=== PATIENT | male | born 1930 | race Hispanic/Latino ===

== ENCOUNTER 2018-03-05 20:12 | Inpatient (IN) | payer MEDICARE, OTHER ==
[2018-03-05 20:57] LABS: #Eosinphils 0.1 thou/uL (0.0-0.7); #Lymphocytes 1.8 thou/uL (1.20-3.40); #Monocytes 0.4 thou/uL (0.11-0.59); %Basophils 0.5 % (0.0-1.0); %Eosinophils 1.7 % (0.0-10.0); %Lymphocytes 21.8 % (21.0-51.0); %Monocytes 4.6 % (0.0-10.0); %Neutrophils 71.3 % (42.0-75.0); Hemoglobin 15.7 g/dL (14.0-18.0); Mean Corpuscular HGB CONC 35.9 g/dL (32.0-36.0); Mean Corpuscular Hemoglobin 29.9 pg (27.0-31.0); Mean Corpuscular Volume 83.2 fL (78.0-98.0); Platelet Count 261 thou/uL (130-400); Red Blood Cell (RBC) Count 5.26 mill/uL (4.70-6.10); White Blood Cell (WBC) Count 8.5 thou/uL (4.8-10.8)
[2018-03-05 21:19] LABS: ALT (SGPT) 12 U/L (8-55); AST (SGOT) 9 U/L (5-34); Albumin 4.3 g/dL (3.4-4.8); Alkaline Phosphatase 170 U/L (40-150); Anion Gap 22 mmol/L (10-20); BUN (Urea Nitrogen) 12 mg/dL (8.4-25.7); Bilirubin, Total 0.7 mg/dL (0.2-1.2); Calc. Creatinine Clearance 0 mL/min (70-130); Calcium 9.3 mg/dL (7.8-10.44); Chloride 104 mmol/L (98-107); Estimated GFR-MDRD 59; Globulin 4.7 g/dL (2.4-3.5); Glucose 397 mg/dL (83-110); Sodium 131 mmol/L (136-145)
[2018-03-05 21:22] LABS: Bilirubin Small (Negative); Blood, Urine Negative (Negative); Clarity CLEAR (Clear); Glucose, Urine (Dipstick) Negative (Negative); Leukocyte Small (Negative); Nitrite Negative (Negative); Protein, Urine (Dipstick) 30 mg/dL (Neg-Trace); Specific Gravity, Urine 1.025 (1.002-1.036)
[2018-03-05 21:27] LABS: Bacteria/HPF None Seen HPF (None Seen); Hyaline Casts/LPF 7-10 HYALINE CAST LPF (0-3 Hyaline); Squamous Epithelial 0-3 HPF (0-3)
[2018-03-05 21:28] LABS: Carbon Dioxide 9 mmol/L (23-31)
[2018-03-05] MEDS ORDERED: Enoxaparin Sodium 40 MG/0.4 ML SYRINGE SC SCH (23:15)
--- NOTE | 2018-03-05 23:31 | PDOC.FPRHP ---
- History of Present Illness Chief Complaint: unable to swallow History of Present Illness: 87 yo W M with PMH of dx gastric cancer in Sep, CHF, DM, HTN, and gastric ulcers , presents with dysphagia for the past 3 days. Pt states food feels "stuck in my throat," so he has not eaten for the past 3 days. He vomited after trying to eat 3 days ago. He has been able to drink very small amounts of gatorade and water. Prior to this, he was eating slow, small, frequent meals. Pt was diagnosed with gastric cancer in September and elected to have no treatment, because spouse went through tx for breast cancer and he watched her suffer. Pt also complains of new onset epigastric pain. He has lost 30 lbs since september. He had a cough 1 month ago, no other recent fevers or illnesses. Pt PCP is Dr. Ford at the [facility]. Also sees oncologist Dr. Garcia in [place]. In the ED, pt blood pressure was low, with systolic in the 80s. pt received two boluses of 500 ml, and pressure corrected to 120/56, with HR 102. EKG showed RBBB. - Allergies/Adverse Reactions Allergies Allergy/AdvReac Type Severity Reaction Status Date / Time sulfamethoxazole Allergy Verified 03/06/18 00:13 [From Bactrim] trimethoprim [From Bactrim] Allergy Verified 03/06/18 00:13 - Home Medications Medication Instructions Recorded Confirmed Type Allopurinol 100 mg PO DAILY 05/18/16 03/06/18 History Sennosides/Docusate Sodium [DOK 1 tablet PO DAILY PRN 05/18/16 03/06/18 History Plus] Ferrous Gluconate [Fergon] 324 mg PO BID #60 tab 05/23/16 03/06/18 Rx Carvedilol [Coreg] 3.125 mg PO HS 03/06/18 03/06/18 History Carvedilol [Coreg] 6.25 mg PO QAM 03/06/18 03/06/18 History Lisinopril [Zestril] 0.5 tab PO HS 03/06/18 03/06/18 History - History PMHx: gastric ulcers, CHF, DM (diet controlled), HTN, gastric cancer PSHx: surgery for bowel obstruction, appendectomy FHx: mother with BC in her late 80s/early 90s Social: 11 PY smoking hx, quit 30 yrs ago; no Etoh, no drugs - Review of Systems General: reports: weight/appetite/sleep changes (lost 30 lbs in past 5 months). denies: fever/chills, fatigue ENT: denies: rhinorrhea, other (denied sore throat) Respiratory: denies: cough, congestion, shortness of breath, exercise intolerance Cardiovascular: reports: edema. denies: chest pain Gastrointestinal: reports: vomiting, abdominal pain (epigastric). denies: nausea, diarrhea, constipation, GI bleeding Skin: denies: rashes Musculoskeletal: denies: pain Neurological: denies: numbness, weakness - Vital signs Bp 120/56, P 102, R 20, T 98.1, O2 99% on RA, Wt 73 kg - Physical Exam Constitutional: NAD, awake, alert and oriented, other (cachectic) HEENT: normocephalic and atraumatic, PERRLA, MMM, oropharynx clear Neck: supple, no LAD Chest: no-tender to palpation, no lesions Heart: RRR, normal S1/S2, pulses present, other (1/6 systolic murmur) Lungs: CTAB, no respiratory distress, good air movement, no rales/rhonchi, no wheezing Abdomen: soft, bowel sounds present, no masses/distention, other (epigastrium slightly TTP) Musculoskeletal: normal structure, normal tone Neurological: no focal deficit Skin: no rash/lesions, good turgor, capillary refill <2 seconds Psychiatric: normal mood and affect, other (poor remote memory, had to ask daughter for help answering questions) FMR H&P: Results - Labs Result Diagrams: 03/05/18 20:35 03/06/18 02:00 Lab results: WBC 8.5 thou/uL (4.8-10.8) 03/05/18 20:35 Hgb 15.7 g/dL (14.0-18.0) 03/05/18 20:35 Hct 43.7 % (42.0-52.0) 03/05/18 20:35 MCV 83.2 fL (78.0-98.0) 03/05/18 20:35 Plt Count 261 thou/uL (130-400) 03/05/18 20:35 Neutrophils % 71.3 % (42.0-75.0) 03/05/18 20:35 Sodium 131 mmol/L (136-145) L 03/05/18 20:35 Potassium 4.0 mmol/L (3.5-5.1) 03/05/18 20:35 Chloride 104 mmol/L (98-107) 03/05/18 20:35 Carbon Dioxide 9 mmol/L (23-31) L* 03/05/18 20:35 BUN 12 mg/dL (8.4-25.7) 03/05/18 20:35 Creatinine 1.17 mg/dL (0.6-1.3) 03/05/18 20:35 Glucose 397 mg/dL (83-110) H 03/05/18 20:35 Lactic Acid 1.0 mmol/L (0.5-2.2) 03/05/18 20:35 Calcium 9.3 mg/dL (7.8-10.44) 03/05/18 20:35 Total Bilirubin 0.7 mg/dL (0.2-1.2) 03/05/18 20:35 AST 9 U/L (5-34) 03/05/18 20:35 ALT 12 U/L (8-55) 03/05/18 20:35 Alkaline Phosphatase 170 U/L (40-150) H 03/05/18 20:35 B-Natriuretic Peptide 548.0 pg/mL (0-100) H 03/05/18 20:43 Serum Total Protein 9.0 g/dL (5.8-8.1) H 03/05/18 20:35 Albumin 4.3 g/dL (3.4-4.8) 03/05/18 20:35 Urine Ketones Trace mg/dL (Negative) H 03/05/18 21:07 Urine Blood Negative (Negative) 03/05/18 21:07 Urine Nitrite Negative (Negative) 03/05/18 21:07 Ur Leukocyte Esterase Small (Negative) H 03/05/18 21:07 Urine RBC 4-6 HPF (0-3) 03/05/18 21:07 Urine WBC 11-20 HPF (0-3) H 03/05/18 21:07 Ur Squamous Epith Cells 0-3 HPF (0-3) 03/05/18 21:07 Urine Bacteria None Seen HPF (None Seen) 03/05/18 21:07 FMR H&P: A/P - Problem List (1) Dysphagia Current Visit: Yes Status: Acute Code(s): R13.10 - DYSPHAGIA, UNSPECIFIED (2) Malnutrition Current Visit: Yes Status: Acute Code(s): E46 - UNSPECIFIED PROTEIN-CALORIE MALNUTRITION (3) Moderate dehydration Current Visit: Yes Status: Acute Code(s): E86.0 - DEHYDRATION (4) Gastric carcinoma Current Visit: Yes Status: Chronic Code(s): C16.9 - MALIGNANT NEOPLASM OF STOMACH, UNSPECIFIED (5) Hyponatremia Current Visit: Yes Status: Acute Code(s): E87.1 - HYPO-OSMOLALITY AND HYPONATREMIA (6) CHF (congestive heart failure) Current Visit: Yes Status: Chronic Code(s): I50.9 - HEART FAILURE, UNSPECIFIED (7) T2DM (type 2 diabetes mellitus) Current Visit: Yes Status: Chronic (8) Dyslipidemia Current Visit: No Status: Chronic Code(s): E78.5 - HYPERLIPIDEMIA, UNSPECIFIED (9) Hypertension Current Visit: No Status: Chronic Code(s): I10 - ESSENTIAL (PRIMARY) HYPERTENSION Qualifiers: Hypertension type: essential hypertension Qualified Code(s): I10 - Essential (primary) hypertension (10) Gout Current Visit: No Status: Chronic Code(s): M10.9 - GOUT, UNSPECIFIED - Plan 87 yo W M with PMH of gastric cancer presents for dysphagia, malnutrition, and dehydration. Malnutrition -Hx of gastric cancer diagnosed in Sep, treatment refused. Pt has not eaten past 3 days due to sensation of "food sticking" in his throat, has tolerated small amounts of fluids. Pt has lost significant amount of weight (30 lbs) in past 5 months. At this time, it is necessary to consult surgery to see if they want to do an EGD and/or consider placing a peg tube. Dehydration -NS @ 75 ml/hr. With hx of CHF, fluid must be balanced carefully between rehydration and overloading his cardiovascular system. Dysphagia - Most likely related to gastric cancer vs stricture -Speech therapy consult -NPO for now, after seen by speech consider switching his diet to clears with ensure supplementation -consult surgery in AM T2DM -glucose 392 on admission -sliding scale insulin -betahydroxybutyrate pending CHF -BNP ordered HTN -restarted home carvedilol and lisinopril Gout -restarted home allopurinol Other -Consult PT/OT Code status: full code Krista Carrizales, PGY-1 FMR H&P: Upper Level - Pertinent history 87 male here for cant swallow for past 3 days. Patient endorses history of gastric cancer. This has been known since September. He has lost about 30 lb since and has difficulty with both solid and liquid intake since September. In last 3 days, he feels that his dysphagia has worsen and he now has reduced oral and fluid intake. He had declined treatment for his gastric cancer, stating that his went through chemo and . He states he does not want to do the same. He states he wants a peg tube. In the ER, he was noted to be hypotensive down in the 80 systolic, but not febrile. After 1 L of fluid, his BP responded and systolic was in the 120s.He does have a history of CHF. Medication: Lisinopril 10 mg, carvedilol 3.25 BID, allopurinol 200 mg, docusate 50 mg qd, 325 FE once daily Pmhx: DM2, HTN, CHF with , Gastric Cancer, Gout Pshx: Gastric ulcer repair, appendectomy, surgery for bowel obstruction Allergies: Bactrim - Hives Family hx: Mother : breast cancer Social: Former smoker, lives with family - Pertinent findings Vitals:60, Pulse 99, Resp 20, Temp 98.8F, 98% on RA Gen: Thin appearing, NAD HEENT: Normocephalic, dry mucosal membrane, no jaundice CV: RRR with no apparent m/g/r Resp: CTA bilaterally, no labored breathing GI: Normoactive, soft to palpation Ext: 1+ edema to mid [place]. Derm: No obvious lesions Neuro: Strength 5/5 in LE. No focal deficit. Psych: Grossly alert and oriented - Plan Date/Time: 03/05/18 2311 I, [Hung Arenas], have evaluated this patient and agree with findings/plan as outlined by technology risk intern resident. Pertinent changes/additions are listed here. 1. Dehydration: Symptomatic with BP in 80 systolic, responded after fluid bolus. 75NS/hr secondary to history of CHF 2. Protein calorie malnutrition: Lost 30 lbs within last year. Patient desires PEG tube. NPO at this time as patient aspiration risk with his reduce swallowing capability. Bedside swallow, then likely start on clears. 3. Gastric cancer: Request record in morning, consider consult onc/gen surg/GI in morning for gastric cancer, PEG and EGD respectively 4. CHF: Last echo in 05/20/16, EF 45-50% with diastolyic dysfunction. Continue carvedilol and Lisinopril. 5. Hyponatremia: Likely secondary to dehydration. Will trend. Correct with NS. 6. Anion gap metabolic acidosis, gap 18. Patient glucose was 397 on admission. LA was 1. Patient non labored breathing. Will obtain b-hydroxybutyrate. Consider ketosis secondary to decrease intake and with known DM2. Will follow up with lab and treat as appropriate. 7. DM2: SSI. Patient report being diet controlled only. 8. Isolated alk phosphatase elevation: Consider US. ALT/AST normal. 9. PPx: Lovenox, PT/OT 10. Gout: Continue allopurinol.
[2018-03-06] MEDS ORDERED: Docusate 100 MG CAP PO PRN (01:08)
[2018-03-06] MEDS: Sodium Chloride 0.9% 1,000 ML IV SCH ×2 (01:09→15:31)
[2018-03-06] MEDS ORDERED: Dextrose 5% in Water 1,000 ML IV PRN (01:10)
[2018-03-06] MEDS ORDERED: Dextrose 50% Abboject 50 ML SYRINGE SLOW IVP PRN (01:10)
[2018-03-06] MEDS ORDERED: HumaLOG 300 UNITS/3 ML VIAL SC PRN (01:10)
[2018-03-06] MEDS ORDERED: Lisinopril 10 MG TAB PO SCH (01:15)
[2018-03-06 02:39] LABS: Anion Gap 9 mmol/L (10-20); BUN (Urea Nitrogen) 20 mg/dL (8.4-25.7); Calc. Creatinine Clearance 50 mL/min (70-130); Calcium 8.4 mg/dL (7.8-10.44); Carbon Dioxide 27 mmol/L (23-31); Chloride 104 mmol/L (98-107); Estimated GFR-MDRD 63; Glucose 99 mg/dL (83-110); Potassium 4.2 mmol/L (3.5-5.1); Sodium 136 mmol/L (136-145)
[2018-03-06] MEDS: Carvedilol 3.125 MG TAB PO SCH ×2 (08:32→17:16)
[2018-03-06] MEDS: Ferrous Sulfate 325 MG TAB PO SCH (08:32)
[2018-03-06] MEDS: Allopurinol 100 MG TAB PO SCH (08:32)
[2018-03-06] MEDS: Lisinopril 10 MG TAB PO SCH (08:32)
[2018-03-06] MEDS: Famotidine/PF 20 mg/2ml Vial SLOW IVP SCH ×2 (15:32→21:13)
[2018-03-06] MEDS: Enoxaparin Sodium 40 MG/0.4 ML SYRINGE SC SCH (21:14)
[2018-03-07] MEDS: Sodium Chloride 0.9% 1,000 ML IV SCH (01:44)
--- NOTE | 2018-03-07 08:44 | PDOC.FM ---
- Subjective Subjective: No acute events overnight. Pt denies pain, nvdc. Denies hunger although he has not had po intake in approx 48 hours. He spoke with palliative care yesterday and I spoke with pt at bedside regarding code status, he wishes to be DNR. Will advance diet to clear liquids. GI consult still pending. - Objective Vital Signs & Weight: Vital Signs (12 hours) Temp Pulse Resp BP Pulse Ox 03/06/18 23:29 98.3 F 71 16 125/68 94 L Weight Admit Weight 73.113 kg Weight 76.657 kg I&O: 03/06/18 03/07/18 03/08/18 06:59 06:59 06:59 Intake Total 1601 Output Total 525 Balance 1076 Result Diagrams: 03/05/18 20:35 03/06/18 02:00 <Mateusz Almeida - Last Filed: 03/07/18 08:42> - Objective Vital Signs & Weight: Vital Signs (12 hours) Temp Pulse Resp BP Pulse Ox 03/07/18 08:30 99 F 73 18 126/59 L 92 L 03/07/18 08:00 99 F 73 18 03/06/18 23:29 98.3 F 71 16 125/68 94 L Weight Admit Weight 73.113 kg Weight 76.657 kg I&O: 03/06/18 03/07/18 03/08/18 06:59 06:59 06:59 Intake Total 1601 440 Output Total 525 350 Balance 1076 90 Result Diagrams: 03/05/18 20:35 03/06/18 02:00 <Ulysess Vega - Last Filed: 03/07/18 11:27> Phys Exam - Physical Examination Constitutional: NAD HEENT: PERRLA, moist MMs Neck: no nodes, no JVD Respiratory: no wheezing, no rales, no rhonchi, clear to auscultation bilateral Cardiovascular: RRR, no significant murmur, no rub Gastrointestinal: soft, non-tender, no distention, positive bowel sounds Musculoskeletal: pulses present, edema present (2+ pitting b/l LE) Neurological: non-focal, moves all 4 limbs Psychiatric: normal affect Skin: no rash, normal turgor, cap refill <2 seconds <Mateusz Almeida - Last Filed: 03/07/18 08:42> Dx/Plan (1) Dysphagia Code(s): R13.10 - DYSPHAGIA, UNSPECIFIED Status: Acute (2) Malnutrition Code(s): E46 - UNSPECIFIED PROTEIN-CALORIE MALNUTRITION Status: Acute (3) CHF (congestive heart failure) Code(s): I50.9 - HEART FAILURE, UNSPECIFIED Status: Chronic (4) T2DM (type 2 diabetes mellitus) Status: Chronic (5) Gastric carcinoma Code(s): C16.9 - MALIGNANT NEOPLASM OF STOMACH, UNSPECIFIED Status: Chronic - Plan Plan: 1) Dysphagia: charyley 2/2 worsening tumor burden of know gastric carcinoma - palliative consulted - pt wishes to be DNR, although he would like some nutrition in form of peg tube - GI referral placed - Clear liquid diet 2) Gastric carcinoma. see #1 3) DMII) SSI -accuchecks achs 4)HFrEF: BNP mildly elevated above baseline - increasing LE edema from yesterday - will give 20mg IVP lasix - monitor clinically for s/s worsening fluid status <Mateusz Almeida - Last Filed: 03/07/18 08:42> Attending Addendum - Attending Addendum Date/Time: 03/07/18 1122 I personally evaluated the patient and discussed the management with Dr. Almeida I agree with the History, Examination, Assessment and Plan documented above with any addition or exceptions noted below. Pleasant gentleman with gastric carcinoma refusing XRT/Chemotherapy/surgery for end of life care appreciate GI evaluation and recommendations. Patient seen by spiritual and palliative care. <Ulysses Vega - Last Filed: 03/07/18 11:27>
[2018-03-07] MEDS ORDERED: Furosemide 20 MG/2 ML VIAL SLOW IVP SCH (09:00)
[2018-03-07] MEDS: Carvedilol 3.125 MG TAB PO SCH ×2 (09:24→17:27)
[2018-03-07] MEDS: Allopurinol 100 MG TAB PO SCH (09:24)
[2018-03-07] MEDS: Lisinopril 10 MG TAB PO SCH (09:24)
[2018-03-07] MEDS: Ferrous Sulfate 325 MG TAB PO SCH (09:24)
[2018-03-07] MEDS: Famotidine/PF 20 mg/2ml Vial SLOW IVP SCH ×2 (10:08→20:29)
[2018-03-07] MEDS ORDERED: Lidocaine 1% PF 5 ML VIAL ONE (12:11)
[2018-03-07] MEDS ORDERED: PROPOFOL 200 MG/20 ML VIAL ONE (12:11)
[2018-03-07] MEDS: Enoxaparin Sodium 40 MG/0.4 ML SYRINGE SC SCH (20:28)
--- NOTE | 2018-03-08 02:06 | OP ---
DATE OF PROCEDURE: 03/07/2018 OPERATIVE PROCEDURES: 1. Esophagogastroscopy. 2. Esophageal dilation with 52-Ch[place] Pires dilator. PREOPERATIVE DIAGNOSES: Dysphagia, gastric ulcer. POSTOPERATIVE DIAGNOSES: 1. No esophageal narrowing seen. 2. Extensive friable fungating mass over the stomach and the balance could not be visualized. PROCEDURE NOTE: The patient was placed on his left lateral position and was given sedation by Anesth esia Department. A Pentax video gastroscope under direct vision was passed into the oropharynx, pass ed the GE junction, into the stomach. The vocal cords appeared healthy. The distal lumen is widely open. He does have occasional white plaques over the upper esophagus. The GE junction, no pathology seen. The scope advanced easily into the stomach. Upon entering the stomach, patient found to have sensory fungating ulcerated mass over the proximal extended gastric body. The lesion was quite larg e and widespread. The fundus and cardia, no pathology seen. I could not locate the pylorus after se veral minutes. The scope removed. The empiric dilation done with 52-[place] Pires dilator. RECOMMENDATIONS: 1. Diet as tolerated. 2. Endoscopic gastrostomy tube placement, this because of extensive tumor. I did talk to his daughter who was in the waiting room. I explained to her about the endoscopic find ings. I encouraged her to follow drink liquids as much as possible.
--- NOTE | 2018-03-08 02:42 | CON ---
DATE OF CONSULTATION: 03/07/2018 REFERRING PHYSICIAN: Dr. Levy York MD, [facility] Practice service. REASON FOR CONSULTATION: Dysphagia, history of gastric cancer. HISTORY OF PRESENT ILLNESS: Mr. Carlos Smyth is a very fragile looking, elderly ma le with a diagnosis of gastric cancer diagnosed in 09/2017. The patient's daughter is in the room. As per the patient's family that he was found to have anemia in 08/2017 and was referred to [facility] in [place]. In EGD, he found to have gastric cancer at that time. The daughter tells me he also h ad abdominal CAT scan that was found to have liver masses mostly metastatic disease. He also had a c olonoscopy at the same time. He was advised by the GI doctor in [place] just not to do any chemothera py or any other pathology. He recommended comfort care. The patient has had no appetite and he has been doing very poorly. He has been losing weight and as per the family, he had lost about 40 pounds over the last 6 months. The patient also has seen Dr. Ross Gandhi in 2018 because of some dyspnea and he did a heart exam. However, he was told the heart is really not that better and advised to com e back in 6 months' time. The patient has had no chest pain, no dyspnea, no orthopnea or PND. The p atient is awake, alert, and communicative. He tells me that he feels as if something is going down _ ____. He feels full and bloated. He has abdominal pain. No nausea or vomiting. No odynophagia. H e seems to think that there is something blocking in the esophagus and not able to swallow. Bowel mo vements are fairly regular. No history of hematochezia or melena. No other relevant symptoms. MEDICAL ILLNESSES: 1. Gastric cancer diagnosed in 09/2017. 2. Anemia. 3. History of heart failure and has seen Dr. Ross Gandhi in the past. He has also history of type 2 diabetes mellitus. 4. Hyperlipidemia. 5. Hypertension. OTHER DIAGNOSIS: SOCIAL HISTORY: Patient is a past smoker. Does not drink alcohol. ALLERGIES: SULFA. REVIEW OF SYSTEMS: [employer]: No history of dizziness, no syncope, no TIA, no seizure disorder. Respirat ory: No history of chronic cough, hemoptysis, dyspnea. Cardiovascular: No chest pain, no palpitati on, no dyspnea, orthopnea or PND. Gastrointestinal: Vague abdominal pain, abdominal fullness, dysph agia. Genitourinary: No dysuria, hematuria or frequency of urination. Musculoskeletal, endocrine a nd psychiatric: Noncontributory. PHYSICAL EXAMINATION: GENERAL: This is a very pleasant, elderly male, appears very comfortable. He is awak e, alert, and communicative. VITAL SIGNS: Stable. He is afebrile, temperature 99 degrees Fahrenheit, pulse is 73, blood pressure is 126/55. HEENT: He has mild scleral icterus. NECK: Supple. No adenitis or thyromegaly noted. CARDIOVASCULAR: First and second heart sounds normal. LUNGS: Clear to auscultation. ABDOMEN: Soft to palpate. Abdomen is nontender. No organomegaly or masses. Bowel sounds are jh l. EXTREMITIES: Reveal no edema. LABORATORY DATA: CBC shows WBC 8500, hemoglobin 15.7, hematocrit 43.7, MCV 83.2, platelet count 251, 000. Glucose is 73. CLINICAL IMPRESSION: An 87-year-old male with a diagnosis of gastric carcinoma in 2017. He has been eating very less and is losing weight. The patient has presents dysphagia, unable to eat. I am really not sure if this is a true dysphagia or he is feeling full and bloated because of gastric cancer. I offered the patient an EGD and possible dilation. I did talk to the patient's family about the need for a gastrostomy tube. I also explained to him that the gastrostomy tube walt ot be possible because of the gastric cancer. PLAN: I will plan for an EGD today and I will make further recommendations.
[2018-03-08] MEDS: Carvedilol 3.125 MG TAB PO SCH (07:58)
[2018-03-08] MEDS: Ferrous Sulfate 325 MG TAB PO SCH (07:58)
[2018-03-08] MEDS: Lisinopril 10 MG TAB PO SCH (07:58)
[2018-03-08] MEDS: Allopurinol 100 MG TAB PO SCH (08:00)
[2018-03-08 08:02] VITALS: BP 129/63
[2018-03-08 08:11] VITALS: TEMP 97.6
--- NOTE | 2018-03-08 08:40 | PDOC.FM ---
- Subjective Subjective: 87 yo M w/ PMH of gastric CA. Pt had an EGD yesterday and pylorus was unable to be visualized 2/2 fungating mass. Per pt, no inidication for PEG tube. Full liquid diet. He is tolerating diet well, no acute events overnight. Denies abd pain, NVDC. - Objective Vital Signs & Weight: Vital Signs (12 hours) Temp Pulse Resp BP BP Pulse Ox 03/08/18 08:02 97.6 F 75 18 129/63 94 L 03/08/18 07:58 129/63 Weight Admit Weight 73.113 kg Weight 76.657 kg I&O: 03/07/18 03/08/18 03/09/18 06:59 06:59 06:59 Intake Total 1601 680 Output Total 525 1650 Balance 1076 -970 Result Diagrams: 03/05/18 20:35 03/06/18 02:00 <Mateusz Almeida - Last Filed: 03/08/18 08:39> - Objective Vital Signs & Weight: Vital Signs (12 hours) Temp Pulse Resp BP BP Pulse Ox 03/08/18 08:02 97.6 F 75 18 129/63 94 L 03/08/18 07:58 129/63 Weight Admit Weight 73.113 kg Weight 76.657 kg I&O: 03/07/18 03/08/18 03/09/18 06:59 06:59 06:59 Intake Total 1601 680 Output Total 525 1650 Balance 1076 -970 Result Diagrams: 03/05/18 20:35 03/06/18 02:00 <Ulysses Vega - Last Filed: 03/08/18 10:27> Phys Exam - Physical Examination Constitutional: NAD HEENT: PERRLA, moist MMs Neck: no nodes, no JVD Respiratory: no wheezing, no rales, no rhonchi, clear to auscultation bilateral Cardiovascular: RRR, no significant murmur, no rub Gastrointestinal: soft, non-tender, no distention, positive bowel sounds Musculoskeletal: pulses present, edema present (2+, improfed form yesterday) Neurological: non-focal, moves all 4 limbs Psychiatric: normal affect Skin: no rash, cap refill <2 seconds <Mateusz Almeida - Last Filed: 03/08/18 08:39> Dx/Plan (1) Dysphagia Code(s): R13.10 - DYSPHAGIA, UNSPECIFIED Status: Acute (2) Malnutrition Code(s): E46 - UNSPECIFIED PROTEIN-CALORIE MALNUTRITION Status: Acute (3) CHF (congestive heart failure) Code(s): I50.9 - HEART FAILURE, UNSPECIFIED Status: Chronic (4) T2DM (type 2 diabetes mellitus) Status: Chronic (5) Gastric carcinoma Code(s): C16.9 - MALIGNANT NEOPLASM OF STOMACH, UNSPECIFIED Status: Chronic - Plan Plan: 1) Dysphagia: likley 2/2 worsening tumor burden of know gastric carcinoma - palliative consulted - advance d to full liquid diet, pt tolerating well - GI consulted, appreciate recs - if no inidication or contrainidications to PEG, pt likely ok to dc to home with palliative care 2) Gastric carcinoma. see #1 3) DMII) SSI -accuchecks achs 4)HFrEF: BNP mildly elevated above baseline - LE edema improved from yesterday, PRN lasix - currently tolerating liquids - hold IVF Dispo: Pt currently tolerating full liquid diet, add ensure TID for nutritional support. If no PEG tube, likely stable for DC to home with palliation. <Mateusz Almeida - Last Filed: 03/08/18 08:39> Attending Addendum - Attending Addendum Date/Time: 03/08/18 1025 I personally evaluated the patient and discussed the management with Dr. Almeida I agree with the History, Examination, Assessment and Plan documented above with any addition or exceptions noted below.Home today f/u PCP at [facility] discussed hospice candidacy patient/family will consider this option. Patient is tolerating liquid allow soft as tolerated stable to dismiss home today. <Ulysses Vega - Last Filed: 03/08/18 10:27>
--- NOTE | 2018-03-08 09:52 | PRG ---
DATE OF SERVICE: 03/08/2018 SUBJECTIVE: This is an 87-year-old Latin-[place]ian male with gastric cancer, diagnosed six months ago . Patient declined chemotherapy. He was admitted because of dysphagia and progressive weight loss. He had an EGD done, which revealed no esophageal pathology. He underwent empiric dilation. He is t olerating a full liquid diet and eating well. He has no abdominal pain, no nausea, no vomiting. PHYSICAL EXAMINATION: GENERAL: Appears comfortable. VITAL SIGNS: Afebrile, pulse is 75, blood pressure 129/63. CARDIOVASCULAR/LUNGS: Within normal limits. ABDOMEN: Soft to palpate. Abdomen is nontender. RECOMMENDATIONS: Advance diet to a regular diet. We will sign off and if there is any problem, plea se call me back.
[2018-03-08 10:04] VITALS: BMI 22.9
[2018-03-08] MEDS: Famotidine/PF 20 mg/2ml Vial SLOW IVP SCH (10:16)
--- NOTE | 2018-03-11 10:04 | DIS-2 ---
LOCATION: [facility] in [place], [place] DATE OF ADMISSION: 03/05/2018 DATE OF DISCHARGE: 03/08/2018 RESIDENT PHYSICIAN: Mateusz Almeida DO ADMITTING ATTENDING: Dr. Levy York. DISCHARGE ATTENDING: Dr. Ulysses Vega. CONSULTATIONS: Gastroenterology, Dr. Louis PROCEDURE: EGD performed on 03/07/2018. This showed no esophageal narrowing and extensive friable f ungating mass over the stomach without visualization of the pyloric sphincter. PRIMARY DIAGNOSES: 1. Gastric carcinoma. 2. Dysphagia. SECONDARY DIAGNOSES: 1. Hypertension. 2. Dyslipidemia. 3. Diabetes mellitus. 4. Congestive heart failure. 5. Malnutrition. 6. Moderate dehydration. 7. Gastric carcinoma. 8. Gout. DISCHARGE MEDICATIONS: 1. Allopurinol 100 mg daily. 2. Coreg 6.25 mg p.o. q.a.m. 3. Coreg 3.125 mg p.o. at bedtime. 4. Lisinopril 5 mg p.o. at bedtime. 5. Sennosides docusate sodium 8.6/50 mg 1 tablet p.o. daily. 6. Ferrous gluconate 324 mg p.o. b.i.d. DISCONTINUED MEDICATIONS: None. HISTORY OF PRESENT ILLNESS/HOSPITAL COURSE: The patient is an 88-year-old male with a past history o f stage IV gastric carcinoma initially presented to the ED with chief complaint of dysphagia, difficu lty swallowing. The patient reported that he felt like the food was stuck in his throat. He had not eaten over the past 3 days. He was able to tolerate small amounts of liquids prior to this. 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 He denied any other symptoms at the time of admission. Ultimately, he has been admi tted for observation. He was fluid resuscitated secondary to poor p.o. intake. He was seen by GI wh o did perform an EGD, which did not show any esophageal stricture, masses, or deformity; however, the re was confirmation of a fungating gastric mass, which was obstructing the view of the pyloric sphinc ter on that procedure. The patient was subsequently started on a full liquid diet, which was eventua lly advanced to a regular diet with mechanical soft solids and regular liquids. He was tolerating p. o. well at the time of discharge and additionally Ensure was added for supplemental feeds b.i.d. Of note, the patient did complete an out of hospital DNR on this admission, which was given to the famil y and himself upon discharge and a copy of that was scanned into the patient's chart. Overall, the p atient had a fairly uncomplicated hospital course and was likely experiencing fullness and some GI di scomfort secondary to the fungating gastric mass, which was partially occluding his pylorus. DISPOSITION: Guarded. DISCHARGE INSTRUCTIONS: 1. Location: Home. 2. Diet: Regular. 3. Activity: Ad barrington. 4. Follow up with primary care provider in 7-10 days following discharge.
--- NOTE | 2018-03-11 11:08 | PQF ---
CIERRA MARROQUIN,PAM KRISHNA [id number] CLINICAL DOCUMENTATION CLARIFICATION FORM: POST DISCHARGE Please exercise your independent, professional judgment in responding to the clarification form. Clinical indicators are provided on the bottom of this form for your review Please check appropriate box(s): HEART FAILURE: A. TYPE: [ x ] Systolic / HFrEF [ ] Diastolic / HFpEF [ ] Combined Systolic / Diastolic B. ACUITY [ ] Acute [ ] Acute on Chronic [ x ] Chronic [ ] Other diagnosis [ ] Unable to determine In addition, please specify: Present on Admission (POA): [ x ] Yes [ ] No [ ] Unable to determine For continuity of documentation, please document condition throughout progress notes and discharge summary. Thank You. CLINICAL INDICATORS - SIGNS / SYMPTOMS / LABS BNP 03/05/18 548 PN 03/07/2018 - HFREF: BNP mildly elevated, increased LE edema, IV lasix ordered RISKS: HTN, HFREF, DM TREATMENTS: IV Lasix - CPOE 03/07/2018 (This form is maintained as a part of the permanent medical record) 2014 [employer], [employer]. All Rights Reserved Afshan Quezada, CCS, TEST ENGINE OPERATOR, CASC [email or web address]
== END 2018-03-08 14:39 | disposition hospice, home (50) | DRG 375 ==
LOC: EDBD 20:12 → ERS 20:12 → ONC 23:28
PROVIDERS: ADMIT Family Medicine; ATTEND Family Medicine
PROC: 0D758ZZ Dilation of Esophagus, Via Natural or Artificial Opening Endoscopic (ICD-10-PCS; principal; 2018-03-07)
DX: C16.9 Malignant neoplasm of stomach, unspecified (principal); E46 Unspecified protein-calorie malnutrition; I50.22 Chronic systolic (congestive) heart failure; E87.1 Hypo-osmolality and hyponatremia; E87.2 Acidosis; R63.4 Abnormal weight loss; E78.5 Hyperlipidemia, unspecified; I11.0 Hypertensive heart disease with heart failure; D64.9 Anemia, unspecified; E86.0 Dehydration; M10.9 Gout, unspecified; Z88.2 Allergy status to sulfonamides
CPT/HCPCS: 36415; 36416; 80048; 80053; 81003; 81015; 82010; 83605; 83880; 85025; 93005; 96360; A4216; G8978-GP-CK; G8979-GP-CJ; G8987-GO-CL; G8988-GO-CJ; G8996-GN-CL; G8997-GN-CI; J1650; J1940; J2001; J2704; S0028